=== PATIENT | female | born 1990 | race American Indian/Alaskan Native ===

== ENCOUNTER 2020-05-18 23:27 | Emergency (ER) | payer SELFPAY ==
[2020-05-18 23:43] VITALS: BP 135/84
--- NOTE | 2020-05-19 00:59 | Cat Scan Report ---
CT head without contrast INDICATION : Trauma to head, fell off an 18-rios hitting head. No L.O.C.. TECHNIQUE: Axial imaging performed from the skull apex through the skull base without the use of con trast. All CT scans at this location are performed using CT dose reduction for ALARA by means of aut omated exposure control. COMPARISON: None FINDINGS: Parenchyma: No acute intracranial hemorrhage or parenchymal abnormality. Ventricles: Ventricles are normal in size and appear symmetric. Soft tissues: Mild frontal scalp soft tissue swelling/hematoma formation in the midline. No apprecia ble laceration identified. Bones: No acute osseous abnormality. Sinuses: Sinuses and mastoid air cells are clear. IMPRESSION: Mild frontal scalp soft tissue swelling/hematoma formation. Otherwise unremarkable exam. Signer Name: Jose Leija MD Signed: 05/19/2020 12:55 AM Workstation Name: [id number]
--- NOTE | 2020-05-19 01:00 | Cat Scan Report ---
CT cervical spine without contrast INDICATION: Trauma to neck, fell off an 18-rios injuring her neck.. TECHNIQUE: Axial imaging performed through the cervical spine without the use of contrast. Sagittal and coronal reconstructed images were also reviewed. All CT scans at this location are performed us ing CT dose reduction for ALARA by means of automated exposure control. COMPARISON: None FINDINGS: Alignment: Spinal alignment is normal. Bones: There is no acute osseous abnormality. Mild multilevel discogenic DJD is present. Soft tissues: No acute or significant incidental soft tissue abnormality. IMPRESSION: No acute abnormality. Signer Name: Jose Leija MD Signed: 05/19/2020 12:56 AM Workstation Name: [id number]
[2020-05-19] MEDS ORDERED: traMADol 50 MG TAB PO ONE (01:25)
--- NOTE | 2020-05-19 01:41 | Emergency Department Report ---
ED General Adult HPI - General Chief complaint: Head Injury Stated complaint: FELL OFF TRUCK Time Seen by Provider: 05/19/20 01:25 Source: patient Mode of arrival: Ambulatory Limitations: No Limitations - History of Present Illness Initial comments: Patient is a 30-year-old -[place] female who presents for headache status post fall getting out of tractor-trailer tonight. There is no LOC. Patient was immediately ambulatory on scene , patient presents via POV and family member. Patient is amatory with steady gait alert oriented complaining o f forehead contusion and posterior neck pain. There is no bleeding ,laceration, or abrasions noted. Pain is described as 4/10 aching continuous. Pain is relieved by nothing tried. - Related Data Previous Rx's Medication Instructions Recorded Last Taken Type Acetaminophen [Acetaminophen TAB] 1,000 mg PO Q6HR #30 tablet 05/19/20 Unknown Rx Metoclopramide [Reglan] 10 mg PO Q6H PRN #30 tablet 05/19/20 Unknown Rx diphenhydrAMINE [Benadryl CAP] 25 mg PO Q6HR PRN #30 capsule 05/19/20 Unknown Rx traMADoL [Ultram] 50 mg PO Q6HR PRN #12 tablet 05/19/20 Unknown Rx Allergies Allergy/AdvReac Type Severity Reaction Status Date / Time hydrocodone Allergy Itching Verified 05/18/20 23:48 Penicillins Allergy Hives Verified 05/18/20 23:48 ED Review of Systems ROS: Stated complaint: FELL OFF TRUCK Other details as noted in HPI Constitutional: denies: chills, fever Eyes: denies: eye pain, eye discharge, vision change ENT: denies: ear pain, throat pain Respiratory: denies: cough, shortness of breath, wheezing Cardiovascular: denies: chest pain, palpitations Endocrine: no symptoms reported Gastrointestinal: denies: abdominal pain, nausea, diarrhea Genitourinary: denies: urgency, dysuria, discharge Musculoskeletal: other (neck pain ) Skin: denies: rash, lesions Neurological: headache. denies: numbness, paresthesias, confusion, vertigo Psychiatric: denies: anxiety, depression Hematological/Lymphatic: denies: easy bleeding, easy bruising ED Past Medical Hx - Past Medical History Previous Medical History?: No - Surgical History Past Surgical History?: Yes Additional Surgical History: . Skin graft - Social History Smoking Status: Current Every Day Smoker Substance Use Type: None - Medications Home Medications: Home Medications Medication Instructions Recorded Confirmed Last Taken Type Acetaminophen [Acetaminophen TAB] 1,000 mg PO Q6HR #30 tablet 05/19/20 Unknown Rx Metoclopramide [Reglan] 10 mg PO Q6H PRN #30 tablet 05/19/20 Unknown Rx diphenhydrAMINE [Benadryl CAP] 25 mg PO Q6HR PRN #30 capsule 05/19/20 Unknown Rx traMADoL [Ultram] 50 mg PO Q6HR PRN #12 tablet 05/19/20 Unknown Rx ED Physical Exam - General Limitations: No Limitations General appearance: alert, in no apparent distress - Head Head exam: Present: normocephalic - Expanded Head Exam Expanded Head exam: Present: hematoma. Absent: laceration, abrasion, contusion, racoon eyes, rios's sign, tenderness of temporal artery - Eye Eye exam: Present: normal appearance, PERRL, EOMI Pupils: Present: normal accommodation - ENT ENT exam: Present: normal orophraynx, mucous membranes moist, TM's normal bila terally, normal external ear exam - Neck Neck exam: Present: normal inspection, tenderness (mild paraspinus pain , no posterior vertebral pain, rom intact to all quadrants without restriction , no swelling, no crepitus no stepoff ), full ROM. Absent: meningismus - Expanded Neck Exam Expanded Neck exam: Absent: midline deformity, anterior neck swelling, tracheal deviation - Respiratory Respiratory exam: Present: normal lung sounds bilaterally. Absent: respiratory distress, wheezes, stridor, chest wall tenderness - Cardiovascular Cardiovascular Exam: Present: regular rate, normal rhythm, normal heart sounds. Absent: systolic murmur, diastolic murmur, rubs, gallop - GI/Abdominal GI/Abdominal exam: Present: soft, normal bowel sounds. Absent: distended, tenderness, guarding, rebound, rigid, bruit, hernia - Rectal Rectal exam: Present: deferred - Extremities Exam Extremities exam: Present: normal inspection, full ROM. Absent: tenderness - Back Exam Back exam: Present: normal inspection, full ROM. Absent: tenderness, vertebral tenderness - Neurological Exam Neurological exam: Present: alert, oriented X3, CN II-XII intact, normal gait, reflexes normal. Absent: motor sensory deficit - Expanded Neurological Exam Expanded Patient oriented to: Present: person, place, time Speech: Present: fluid speech Motor strength exam: RUE: 5, LUE: 5, RLE: 5, LLE: 5 Best Eye Response (Hope): (4) open spontaneously Best Motor Response (Hope): (6) obeys commands Best Verbal Response (Hope): (5) oriented Hope Total: 15 - Psychiatric Psychiatric exam: Present: normal affect, normal mood - Skin Skin exam: Present: warm, dry, intact, normal color. Absent: rash ED Course Vital Signs 05/18/20 23:36 Temperature 98.2 F Pulse Rate 92 H Respiratory 18 Rate Blood Pressure 135/84 O2 Sat by Pulse 98 Oximetry ED Medical Decision Making - Radiology Data Radiology results: report reviewed, image reviewed Findings Reporting MD: Jose Leija Dictation Time: May 18, 2020 23:55 Transcript ionist: Not available Shop Superintendent Date: CT head without contrast INDICATION : Trauma to head, fell off an 18-rios hitting head. No L.O.C.. TECHNIQUE: Axial imaging performed from the skull apex through the skull base without the use of contrast. All CT scans at this location are performed using CT dose reduction for ALARA by means of automated exposure control. COMPARISON: None FINDINGS: Parenchyma: No acute intracranial hemorrhage or parenchymal abnormality. Ventricles: Ventricles are normal in size and appear symmetric. Soft tissues: Mild frontal scalp soft tissue swelling/hematoma formation in the midline. No appreciable laceration identified. Bones: No acute osseous abnormality. Sinuses: Sinuses and mastoid air cells are clear. IMPRESSION: Mild frontal scalp soft tissue swelling/hematoma formation. Otherwise unremarkable exam. Signer Name: Jose Leija MD Signed: 05/18/2020 11:55 PM Workstation Name: [id number] - Medical Decision Making CT head and C-spine no fracture CT head mild frontal hematoma 1 x 2 cm there is no active bleeding no crepitus no step-off plan DC to home with prescriptions. Neck exercises. Ice to hematoma. Follow-up with PCP in 2 to 3 days. Patient given close head injury precautions. Patient verbalized agreement and understanding with same. Patient is currently alert oriented x3 with ambulatory with steady gait. Patient DC'd home in stable condition at this time. Diagnosis closed head injury, cervical strain, forehead hematoma. Critical care attestation.: If time is entered above; I have spent that time in minutes in the direct care of this critically ill patient, excluding procedure time. ED Disposition Clinical Impression: Traumatic hematoma of forehead Qualifiers: Encounter type: initial encounter Qualified Code(s): S00.83XA - Contusion of o ther part of head, initial encounter Cervical muscle strain Qualifiers: Encounter type: initial encounter Qualified Code(s): S16.1XXA - Strain of muscle, fascia and tendon at neck level, initial encounter Closed head injury Qualifiers: Encounter type: initial encounter Qualified Code(s): S09.90XA - Unspecified injury of head, initial encounter Disposition: TO HOME OR SELFCARE Is pt being admited?: No Does the pt Need Aspirin: No Condition: Stable Instructions: Head Injury, Adult, [id number], Cervical Strain and Sprain Rehab-[facility], Facial or Scalp Contusion, [id number] Prescriptions: Acetaminophen [Acetaminophen TAB] 1,000 mg PO Q6HR #30 tablet diphenhydrAMINE [Benadryl CAP] 25 mg PO Q6HR PRN #30 capsule PRN Reason: Headache Metoclopramide [Reglan] 10 mg PO Q6H PRN #30 tablet PRN Reason: Headache traMADoL [Ultram] 50 mg PO Q6HR PRN #12 tablet PRN Reason: Pain Referrals: LOPEZ HAGAN MD [Referring] - 3-5 Days Forms: Work/School Release Form(ED) Time of Disposition: 01:50
== END 2020-05-19 02:15 | disposition home or self-care (01) ==
LOC: ED 23:27
DX: S16.1XXA Strain of muscle, fascia and tendon at neck level, initial encounter (principal); S00.83XA Contusion of other part of head, initial encounter; F17.200 Nicotine dependence, unspecified, uncomplicated; W18.30XA Fall on same level, unspecified, initial encounter; Y93.89 Activity, other specified; Y92.89 Other specified places as the place of occurrence of the external cause; Y99.8 Other external cause status
CPT/HCPCS: 70450; 72125; 99283

== ENCOUNTER 2021-01-10 10:24 | Emergency (ER) | payer SELFPAY ==
[2021-01-10 10:48] VITALS: BP 110/76
--- NOTE | 2021-01-10 11:55 | Emergency Department Report ---
- General Chief complaint: Skin/Abscess/Foreign Body Stated complaint: POSS CYST Time Seen by Provider: 01/10/21 11:12 Source: patient Mode of arrival: Ambulatory Limitations: No Limitations - History of Present Illness Initial comments: Patient is a 30-year-old female presents emergency room with complaints of a possible boil to the left buttock that began 4 days ago. She states that she believes it is from an ingrown hair. She states that she occasionally gets these and they opened and drained on their own. She states it has become larger and more painful. She denies any drainage, fever, nausea, vomiting, diarrhea, chills. No past medical history. Allergy to hydrocodone and penicillin. Last menstrual cycle 3 days ago. - Related Data Previous Rx's Medication Instructions Recorded Last Taken Type Acetaminophen [Acetaminophen TAB] 1,000 mg PO Q6HR #30 tablet 05/19/20 Unknown Rx Metoclopramide [Reglan] 10 mg PO Q6H PRN #30 tablet 05/19/20 Unknown Rx diphenhydrAMINE [Benadryl CAP] 25 mg PO Q6HR PRN #30 capsule 05/19/20 Unknown Rx traMADoL [Ultram] 50 mg PO Q6HR PRN #12 tablet 05/19/20 Unknown Rx Acetaminophen/Codeine [Tylenol 1 tab PO Q6H PRN #10 tab 01/10/21 Unknown Rx /Codeine # 3 tab] Ibuprofen [Motrin 600 MG tab] 600 mg PO Q8H PRN #20 tablet 01/10/21 Unknown Rx Mupirocin [Bactroban 2% OINT] 1 applic TP TID #1 tube 01/10/21 Unknown Rx Sulfamethoxazole/Trimethoprim 1 each PO BID 7 Days #14 tablet 01/10/21 Unknown Rx [Bactrim DS TAB] Allergies Allergy/AdvReac Type Severity Reaction Status Date / Time hydrocodone Allergy Itching Verified 01/10/21 10:46 Penicillins Allergy Hives Verified 01/10/21 10:46 Abscess Boil HPI - HPI Chief Complaint: Skin/Abscess/Foreign Body Stated Complaint: POSS CYST Time Seen by Provider: 01/10/21 11:12 Home Medications: Previous Rx's Medication Instructions Recorded Last Taken Type Acetaminophen [Acetaminophen TAB] 1,000 mg PO Q6HR #30 tablet 05/19/20 Unknown Rx Metoclopramide [Reglan] 10 mg PO Q6H PRN #30 tablet 05/19/20 Unknown Rx diphenhydrAMINE [Benadryl CAP] 25 mg PO Q6HR PRN #30 capsule 05/19/20 Unknown Rx traMADoL [Ultram] 50 mg PO Q6HR PRN #12 tablet 05/19/20 Unknown Rx Acetaminophen/Codeine [Tylenol 1 tab PO Q6H PRN #10 tab 01/10/21 Unknown Rx /Codeine # 3 tab] Ibuprofen [Motrin 600 MG tab] 600 mg PO Q8H PRN #20 tablet 01/10/21 Unknown Rx Mupirocin [Bactroban 2% OINT] 1 applic TP TID #1 tube 01/10/21 Unknown Rx Sulfamethoxazole/Trimethoprim 1 each PO BID 7 Days #14 tablet 01/10/21 Unknown Rx [Bactrim DS TAB] Allergies/Adverse Reactions: Allergies Allergy/AdvReac Type Severity Reaction Status Date / Time hydrocodone Allergy Itching Verified 01/10/21 10:46 Penicillins Allergy Hives Verified 01/10/21 10:46 ED Review of Systems ROS: Stated complaint: POSS CYST Other details as noted in HPI Comment: All other systems reviewed and negative ED Past Medical Hx - Surgical History Additional Surgical History: . Skin graft - Social History Smoking Status: Current Every Day Smoker Substance Use Type: None - Medications Home Medications: Home Medications Medication Instructions Recorded Confirmed Last Taken Type Acetaminophen [Acetaminophen TAB] 1,000 mg PO Q6HR #30 tablet 05/19/20 Unknown Rx Metoclopramide [Reglan] 10 mg PO Q6H PRN #30 tablet 05/19/20 Unknown Rx diphenhydrAMINE [Benadryl CAP] 25 mg PO Q6HR PRN #30 capsule 05/19/20 Unknown Rx traMADoL [Ultram] 50 mg PO Q6HR PRN #12 tablet 05/19/20 Unknown Rx Acetaminophen/Codeine [Tylenol 1 tab PO Q6H PRN #10 tab 01/10/21 Unknown Rx /Codeine # 3 tab] Ibuprofen [Motrin 600 MG tab] 600 mg PO Q8H PRN #20 tablet 01/10/21 Unknown Rx Mupirocin [Bactroban 2% OINT] 1 applic TP TID #1 tube 01/10/21 Unknown Rx Sulfamethoxazole/Trimethoprim 1 each PO BID 7 Days #14 tablet 01/10/21 Unknown Rx [Bactrim DS TAB] ED Physical Exam - General Limitations: No Limitations General appearance: alert, in no apparent distress - Head Head exam: Present: atraumatic, normocephalic - Eye Eye exam: Present: normal appearance - ENT ENT exam: Present: mucous membranes moist - Neurological Exam Neurological exam: Present: alert, oriented X3 - Psychiatric Psychiatric exam: Present: normal affect, normal mood - Skin Skin exam: Present: warm, dry, other (practice manager: PARVEZ Wolf, there is a 2 cm area of induration present to the left inner gluteus region, there is mild central fluctuance, no drainage, no necrosis, no opening, no significant surrounding erythema) ED Course Vital Signs 01/10/21 10:47 Temperature 98.7 F Pulse Rate 76 Respiratory 18 Rate Blood Pressure 110/76 O2 Sat by Pulse 99 Oximetry ED Medical Decision Making - Medical Decision Making Patient is a 30-year-old female presents emergency room with complaints of a possible boil to the left buttock that began 4 days ago. She states that she believes it is from an ingrown hair. She states that she occasionally gets these and they opened and drained on their own. She states it has become larger and more painful. She denies any drainage, fever, nausea, vomiting, diarrhea, chills. No past medical history. Allergy to hydrocodone and penicillin. Last menstrual cycle 3 days ago. Vitals are normal. On exam:practice manager: PARVEZ Wolf, there is a 2 cm area of induration present to the left inner gluteus region, there is mild central fluctuance, no drainage, no necrosis, no opening, no significant surrounding erythema. Patient states that she does not want to have an incision and drainage procedure at this time. It appears that she has very early abscess formation. Patient will be given a trial of outpatient antib iotics. Discussed with patient that if the antibiotics do not improve her symptoms that she may need to have an I&D, patient verbalized understanding. I discussed very strict return precautions with patient. Patient given prescription for medications. Advised patient Please use medication as prescribed. Do not drive or operate heavy machinery while taking severe pain medication. Please do warm compresses 3 times a day. Please soak in Epsom salt. Follow-up with your primary care doctor in the next 3 days for reexamination. Return to emergency room medially for any new or worsening symp toms. If symptoms or not improving and worsening, you may need to have a incision and drainage procedure in the ED. Critical care attestation.: If time is entered above; I have spent that time in minutes in the direct care of this critically ill patient, excluding procedure time. ED Disposition Clinical Impression: Abscess Disposition: [id number] TO HOME OR SELFCARE Is pt being admited?: No Does the pt Need Aspirin: No Condition: Stable Instructions: Skin Abscess Additional Instructions: Please use medication as prescribed. Do not drive or operate heavy machinery while taking severe pain medication. Please do warm compresses 3 times a day. Please soak in Epsom salt. Follow-up with your primary care doctor in the next 3 days for reexamination. Return to emergency room medially for any new or worsening symptoms. If symptoms or not improving and worsening, you may need to have a incision and drainage procedure in the ED. Prescriptions: Sulfamethoxazole/Trimethoprim [Bactrim DS TAB] 1 each PO BID 7 Days #14 tablet Mupirocin [Bactroban 2% OINT] 1 applic TP TID #1 tube Ibuprofen [Motrin 600 MG tab] 600 mg PO Q8H PRN #20 tablet PRN Reason: Pain Acetaminophen/Codeine [Tylenol /Codeine # 3 tab] 1 tab PO Q6H PRN #10 tab PRN Reason: pain Referrals: DONNELL MOROCHO MD [Staff Physician] - 2-[address] [facility] [Provider Group] - 2-3 Days Time of Disposition: 11:53 Print Language: GERMAN
== END 2021-01-10 12:14 | disposition home or self-care (01) ==
LOC: ED 10:24
DX: L02.31 Cutaneous abscess of buttock (principal); F17.200 Nicotine dependence, unspecified, uncomplicated; Z88.0 Allergy status to penicillin; Z88.8 Allergy status to other drugs, medicaments and biological substances; Z98.890 Other specified postprocedural states
CPT/HCPCS: 99281